=== PATIENT | male | born 1990 | race Caucasian/White ===

== ENCOUNTER → 2020-02-17 11:07 | Outpatient (CLI) | payer OTHER, SELFPAY ==
[2020-02-18 07:36] LABS: COVID19 Sendout Not Detected (Not Detect)
== END ==
PROVIDERS: PCP Family Medicine; Referring Provider Family Medicine; Visit Provider Family Medicine
DX: J02.9 Acute pharyngitis, unspecified (principal)
CPT/HCPCS: 87635

== ENCOUNTER → 2020-09-18 13:39 | Outpatient (ROUT) | payer OTHER, SELFPAY ==
[2020-09-18 14:22] LABS: COVID19 -Nasal RAPID Negative (Negative)
== END ==
PROVIDERS: PCP Family Medicine; Visit Provider Family Medicine
DX: Z20.822 Contact with and (suspected) exposure to COVID-19 (principal)
CPT/HCPCS: 87635

== ENCOUNTER → 2022-08-22 13:28 | Outpatient (CLI) | payer OTHER, SELFPAY ==
--- NOTE | 2022-08-22 | DI.RAD.S_ITS ---
PROCEDURE: XR RIBS RT MIN 3V W CXR 1V INDICATIONS: right chest wall contusion TECHNIQUE: 3 views of the right ribs were acquired, along with a single view chest. COMPARISON: None. FINDINGS: Surgical changes and devices: None. Bones and chest wall: No fractures or dislocations. No suspicious bony lesions. Overlying soft tissues appear unremarkable. Lungs and pleura: No pleural effusions or pneumothorax. Lungs appear clear. Mediastinum: Mediastinal contours appear normal. Heart size is normal. IMPRESSION: No visualized acute fracture or dislocation. However, if clinical concern and/or pain persist, short interval imaging followup in 7-10 days is recommended, as occult injury cannot be definitively excluded. Dictated by: Aliya Do M.D. on 08/22/2022 at 17:20 Approved by: Aliya Do M.D. on 08/22/2022 at 17:21
== END ==
PROVIDERS: PCP Family Medicine; Referring Provider Family Medicine; Visit Provider Family Medicine
DX: S20.211A Contusion of right front wall of thorax, initial encounter (principal); X58.XXXA Exposure to other specified factors, initial encounter
CPT/HCPCS: 71101

== ENCOUNTER → 2023-03-16 11:31 | Outpatient (CLI) | payer OTHER, SELFPAY ==
--- NOTE | 2023-03-16 | DI.RAD.S_ITS ---
PROCEDURE: XR FINGER RT MIN 2V INDICATIONS: L I TECHNIQUE: AP hand, 2 views of the 5th finger(s) acquired. COMPARISON: None. FINDINGS: Bones: There is a comminuted intra-articular fracture involving the 5th middle phalanx with mild dorsal angulation. No suspicious bony lesions. Soft tissues: No suspicious soft tissue calcifications. Soft tissue swelling. IMPRESSION: Comminuted intra-articular fracture of the 5th middle phalanx. Dictated by: Kimmy Purcell M.D. on 03/16/2023 at 13:11 Approved by: Kimmy Purcell M.D. on 03/16/2023 at 13:12
--- NOTE | 2023-03-16 | DI.RAD.S_ITS ---
PROCEDURE: XR PELVIS 1-2V INDICATIONS: L I TECHNIQUE: AP pelvis and right hip acquired. COMPARISON: None. FINDINGS: Bones: No fractures or dislocations. No suspicious bony lesions. Soft tissues: Visualized bowel gas pattern is normal. No suspicious soft tissue calcifications. IMPRESSION: No acute osseous abnormality. Dictated by: Kimmy Purcell M.D. on 03/16/2023 at 13:02 Approved by: Kimmy Purcell M.D. on 03/16/2023 at 13:03
--- NOTE | 2023-03-16 | DI.RAD.S_ITS ---
PROCEDURE: XR ELBOW RT MIN 3V INDICATIONS: L I TECHNIQUE: 3 views of the elbow were acquired. COMPARISON: None. FINDINGS: Bones: No fractures or dislocations. No suspicious bony lesions. Soft tissues: No elbow joint effusion. No suspicious soft tissue calcifications. IMPRESSION: No acute osseous abnormality. If clinical symptoms persist or clinical suspicion for pathology is high, a repeat examination in 7-10 days, or advanced imaging such as CT or MRI is suggested for further evaluation. Dictated by: Kimmy Purcell M.D. on 03/16/2023 at 12:48 Approved by: Kimmy Purcell M.D. on 03/16/2023 at 12:50
== END ==
PROVIDERS: PCP Family Medicine; Referring Provider Family Medicine; Visit Provider Family Medicine
DX: S62.626A Displaced fracture of middle phalanx of right little finger, initial encounter for closed fracture (principal); T14.90XA Injury, unspecified, initial encounter; W19.XXXA Unspecified fall, initial encounter
CPT/HCPCS: 73080; 73140; 73502

== ENCOUNTER → 2024-03-26 10:01 | Outpatient (CLI) | payer OTHER, SELFPAY ==
--- NOTE | 2024-03-26 10:05 | DI.RAD.S_ITS ---
PROCEDURE: XR KNEE LT 3V INDICATIONS: KNEE PAIN TECHNIQUE: 3 views of the knee were acquired. COMPARISON: None. FINDINGS: Bones: There are no osseous abnormalities. Joints: The tibialfemoral and patellofemoral joints are normal in width and alignment without arthritic change. . There are no effusions. Soft tissues: Normal IMPRESSION: Normal knee. Dictated by: Gurvinder Raman M.D. on 03/27/2024 at 9:56 Approved by: Gurvinder Raman M.D. on 03/27/2024 at 9:57
--- NOTE | 2024-03-26 10:05 | DI.RAD.S_ITS ---
PROCEDURE: XR KNEE RT 3V INDICATIONS: KNEE PAIN TECHNIQUE: 3 views of the knee were acquired. COMPARISON: None. FINDINGS: Bones: There are no osseous abnormalities. Joints: The tibialfemoral and patellofemoral joints are normal in width and alignment without arthritic change. . There are no effusions. Soft tissues: Normal IMPRESSION: Normal knee. Dictated by: Gurvinder Raman M.D. on 03/27/2024 at 9:59 Approved by: Gurvinder Raman M.D. on 03/27/2024 at 9:59
== END ==
PROVIDERS: PCP Family Medicine; Referring Provider Family Medicine; Visit Provider Family Medicine
DX: M25.569 Pain in unspecified knee (principal)
CPT/HCPCS: 73562